=== PATIENT | male | born 1975 | race Two or more races ===

== ENCOUNTER 2023-07-27 12:25 | Emergency (ER) | payer OTHER ==
[~2023-07-27] VITALS: Ht 175.3 cm; Wt 120.0 kg
[2023-07-27 12:42] VITALS: BP 173/97; PULSE 80; TEMP 97; O2SAT 98
--- NOTE | 2023-07-27 12:53 | NUR ---
PT PLACED IN C-COLLAR IN TRIAGE
[2023-07-27] MEDS ORDERED: LIDOcaine 1% W/epiNEPHrine 1:200,000 10ml vial IJ ONE (17:10)
[2023-07-27] MEDS ORDERED: LIDOCAINE 1%/EPI 1:100,000 inj. 10 ML multi-dose vial IJ ONE (17:25)
[2023-07-27] MEDS ORDERED: oxyCODONE/APAP 10/325mg tablet PO ONE (18:05)
[2023-07-27] MEDS ORDERED: OXYC-138 PO (18:06)
[2023-07-27 18:13] VITALS: RESP 18
== END 2023-07-27 19:06 | disposition home or self-care (01) ==
LOC: ER 12:26
DX: S01.112A Laceration without foreign body of left eyelid and periocular area, initial encounter (principal); S83.91XA Sprain of unspecified site of right knee, initial encounter; S83.92XA Sprain of unspecified site of left knee, initial encounter; M25.561 Pain in right knee; M25.562 Pain in left knee; R07.89 Other chest pain; Z79.899 Other long term (current) drug therapy; W14.XXXA Fall from tree, initial encounter; Y93.89 Activity, other specified; Y92.89 Other specified places as the place of occurrence of the external cause; Y99.8 Other external cause status
CPT/HCPCS: 12011; 70450; 72125; 73130; 73564; 73630; 73700; 99284; J7030

== ENCOUNTER 2023-08-03 08:50 | Emergency (ER) | payer OTHER ==
[~2023-08-03] VITALS: Ht 165.1 cm; Wt 75.9 kg
[~2023-08-03 08:50] MED LIST: OXYC-138 PO
[2023-08-03 09:11] VITALS: BP 143/89; PULSE 56; RESP 18; TEMP 98.4; O2SAT 100
[2023-08-03] MEDS ORDERED: CYCL-1 PO (13:17)
[2023-08-03] MEDS ORDERED: NAPR-56 PO (13:17)
== END 2023-08-03 13:57 | disposition home or self-care (01) ==
LOC: ER 08:50
DX: S01.81XD Laceration without foreign body of other part of head, subsequent encounter (principal); X58.XXXD Exposure to other specified factors, subsequent encounter; Z79.899 Other long term (current) drug therapy
CPT/HCPCS: 71046; 72131; 99284